=== PATIENT | female | born 1955 | race American Indian/Alaskan Native ===

== ENCOUNTER 2018-04-21 13:12 | Emergency (ER) | payer OTHER ==
[2018-04-21] MEDS ORDERED: ANTIVERT PO ONE (16:11)
[2018-04-21] MEDS ORDERED: ZOFRAN ODT PO ONE (16:11)
--- NOTE | 2018-04-21 16:14 | Emergency Department Report ---
Blank Doc - Documentation Documentation: Patient is a 62-year-old female who is presenting with multiple complaints. Patient states she has some right ear pain for the last several days w/ dizziness as well as a sensation that something is dripping from the right ear into her mouth. Patient also states that yesterday she was having some neck tightness with some vibrating of movements of her head. Patient states she also is worried that she may have obstruction or abdomen secondary to nausea. On focused physical exam patient does have a small amount of clear fluid behind the right TM and her dizziness and may be secondary to some mild vertigo. X-ray of the abdomen will be taken despite the fact the patient has normal bowel sounds and abdomen is soft and nontender. Patient is convinced she has some obstruction and this will be ruled out.
--- NOTE | 2018-04-21 17:51 | Emergency Department Report ---
<DIMA VERAS YANG - Last Filed: 04/21/18 18:58> ED ENT HPI - General Chief complaint: Earache Stated complaint: RIGHT EAR PAIN, FACE SHAKING Time Seen by Provider: 04/21/18 16:04 Source: patient Mode of arrival: Ambulatory Limitations: No Limitations - History of Present Illness Initial comments: This is a 62-year-old female who is presenting with right ear pain, dizziness, and facial tremors for 2 days. Patient states she is feeling sensation of dizziness with right ear pain for 2 days. Her daughter noticed Friday her face was twitching and told her to go to her primary care doctor. She called her PCP Dr. Diaz who advised he wouldn't refer her to a neurologist for follow-up. Patient states she did not want to wait appointment with neurologist and decided to come in for evaluation. Patient also states that yesterday she was having some neck tightness with some vibrating of movements of her head. Patient is also complaining of abdominal cramping that is intermittent with nausea. Patient denies weakness, vomiting, chest pain, shortness of breath, numbness or tingling, ataxia, and fever. MD complaint: ear pain (right ear) Onset/Timin -: days(s) Location: R ear Severity: moderate Severity scale (0 -10): 5 Quality: aching Consistency: constant Improves with: none Worsens with: swallowing, eating Associated Symptoms: other (vertigo) - Related Data Previous Rx's Medication Instructions Recorded Last Taken Type Bisacodyl [Dulcolax suppos] 10 mg WA QDAY PRN #10 supp.rect 10/29/15 Unknown Rx Ondansetron [Zofran ODT TAB] 8 mg PO Q8HR PRN #14 tab.rapdis 10/29/15 Unknown Rx Pantoprazole [Protonix] 40 mg PO QDAY #30 tablet 10/29/15 Unknown Rx Ondansetron [Zofran Odt] 4 mg PO Q6H #7 tab.rapdis 03/04/16 Unknown Rx traMADol [Ultram] 50 mg PO Q6HR PRN #14 tablet 03/04/16 Unknown Rx Meclizine [Antivert] 25 mg PO TID PRN #15 tablet 04/22/18 Unknown Rx Ondansetron [Zofran Odt] 4 mg PO Q8HR #12 tab.rapdis 04/22/18 Unknown Rx Allergies Allergy/AdvReac Type Severity Reaction Status Date / Time ibuprofen Allergy Rash Verified 04/21/18 13:37 ED Dental HPI - General Chief complaint: Earache Stated complaint: RIGHT EAR PAIN, FACE SHAKING Time Seen by Provider: 04/21/18 16:04 Source: patient Mode of arrival: Ambulatory Limitations: No Limitations - Related Data Previous Rx's Medication Instructions Recorded Last Taken Type Bisacodyl [Dulcolax suppos] 10 mg WA QDAY PRN #10 supp.rect 10/29/15 Unknown Rx Ondansetron [Zofran ODT TAB] 8 mg PO Q8HR PRN #14 tab.rapdis 10/29/15 Unknown Rx Pantoprazole [Protonix] 40 mg PO QDAY #30 tablet 10/29/15 Unknown Rx Ondansetron [Zofran Odt] 4 mg PO Q6H #7 tab.rapdis 03/04/16 Unknown Rx traMADol [Ultram] 50 mg PO Q6HR PRN #14 tablet 03/04/16 Unknown Rx Meclizine [Antivert] 25 mg PO TID PRN #15 tablet 04/22/18 Unknown Rx Ondansetron [Zofran Odt] 4 mg PO Q8HR #12 tab.rapdis 04/22/18 Unknown Rx Allergies Allergy/AdvReac Type Severity Reaction Status Date / Time ibuprofen Allergy Rash Verified 04/21/18 13:37 ED Review of Systems ROS: Stated complaint: RIGHT EAR PAIN, FACE SHAKING Other details as noted in HPI Constitutional: denies: chills, fever ENT: ear pain (right ear). denies: throat pain Respiratory: denies: cough, shortness of breath, wheezing Cardiovascular: denies: chest pain, palpitations, syncope Gastrointestinal: denies: abdominal pain, nausea, vomiting, diarrhea Neurological: vertigo. denies: headache, weakness, paresthesias Psychiatric: denies: anxiety, depression ED Past Medical Hx - Past Medical History Hx Hypertension: Yes Hx Congestive Heart Failure: No Hx Diabetes: Yes (diet control) Hx Asthma: No Hx COPD: No Hx HIV: No Additional medical history: heart trouble, patient unsure of what the diagnosis is, states it hasn't bothered her in a long time,ANEMIA - Surgical History Hx Cholecystectomy: Yes Additional Surgical History: HERNIA SURGERY done December - Social History Smoking Status: Never Smoker Substance Use Type: None - Medications Home Medications: Home Medications Medication Instructions Recorded Confirmed Last Taken Type Bisacodyl [Dulcolax suppos] 10 mg WA QDAY PRN #10 supp.rect 10/29/15 Unknown Rx Ondansetron [Zofran ODT TAB] 8 mg PO Q8HR PRN #14 tab.rapdis 10/29/15 Unknown Rx Pantoprazole [Protonix] 40 mg PO QDAY #30 tablet 10/29/15 Unknown Rx Ondansetron [Zofran Odt] 4 mg PO Q6H #7 tab.rapdis 03/04/16 Unknown Rx traMADol [Ultram] 50 mg PO Q6HR PRN #14 tablet 03/04/16 Unknown Rx Meclizine [Antivert] 25 mg PO TID PRN #15 tablet 04/22/18 Unknown Rx Ondansetron [Zofran Odt] 4 mg PO Q8HR #12 tab.rapdis 04/22/18 Unknown Rx ED Physical Exam - General Limitations: No Limitations General appearance: alert, in no apparent distress, obese - ENT ENT exam: Present: mucous membranes moist, normal external ear exam. Absent: TM 's normal bilaterally (right dull segovia TM, visual bubbles ) - Neck Neck exam: Present: normal inspection, full ROM. Absent: tenderness, meningismus, lymphadenopathy, thyromegaly - Respiratory Respiratory exam: Present: normal lung sounds bilaterally. Absent: respiratory distress - Cardiovascular Cardiovascular Exam: Present: regular rate, normal rhythm. Absent: systolic murmur, diastolic murmur, rubs, gallop - GI/Abdominal GI/Abdominal exam: Present: soft, normal bowel sounds. Absent: distended, tenderness, guarding, rebound, rigid, organomegaly, mass - Neurological Exam Neurological exam: Present: alert, oriented X3, CN II-XII intact, normal gait, reflexes normal - Psychiatric Psychiatric exam: Present: normal affect, normal mood - Skin Skin exam: Present: warm, dry, intact, normal color. Absent: rash ED Course Vital Signs 04/21/18 13:37 Temperature 98.3 F Pulse Rate 110 H Respiratory 20 Rate Blood Pressure 164/86 O2 Sat by Pulse 98 Oximetry ED Medical Decision Making - Radiology Data Radiology results: report reviewed, image reviewed FINAL REPORT EXAM: XR ABD SERIES W CXR 1V HISTORY: nausea, distended TECHNIQUE: Supine and upright views of the abdomen and chest x-ray were performed Comparison: CT 10/26/2015 FINDINGS: Abdominal images demonstrate paucity of bowel gas. Clips in the right upper quadrant. Clear well expanded lungs without focal infiltrate or consolidation. Normal heart size. Hiatal hernia. No free air. Previous CT demonstrates Sherice fundoplication with herniation of the stomach into the distal esophagus. IMPRESSION: Paucity of bowel gas. Cannot fully assess for obstruction or ileus. Previous Sherice fundoplication with part of stomach herniated in the distal esophagus on the previous CT. Current exam demonstrates clips and hiatal hernia. Consider repeat CT or possibly upper GI. No free air. Clear lungs. - Medical Decision Making This is a 62 y.o. female who is presenting with right ear pain, dizziness, and facial tremors for 2 days. Patient is stable and was examined by me and Parker Pereira. Vitals stable. XR of abdomen and chest obtained and dictated by radiologist. Paucity of bowel gas. Cannot fully assess for obstruction or ileus. Previous Sherice fundoplication with part of stomach herniated in the distal esophagus on the previous CT. Current exam demonstrates clips and hiatal hernia. Consider repeat CT or possibly upper GI. No free air. Clear lungs. Ordered CT of abdomen with oral contrast, pending. Chart signed and f/u with Aaron Cash Critical care attestation.: If time is entered above; I have spent that time in minutes in the direct care of this critically ill patient, excluding procedure time. ED Disposition Clinical Impression: Vertigo Abdominal pain Qualifiers: Abdominal location: unspecified location Qualified Code(s): R10.9 - Unspecified abdominal pain Disposition: DC- TO HOME OR SELFCARE Condition: Stable Instructions: Vertigo (ED), Abdominal Pain (ED) Additional Instructions: Please is take medication as prescribed. Follow up with her primary care provider. Prescriptions: Meclizine [Antivert] 25 mg PO TID PRN #15 tablet PRN Reason: Vertigo Ondansetron [Zofran Odt] 4 mg PO Q8HR #12 tab.rapdis Referrals: CARLOS TORREZ MD [Primary Care Provider] - 3-5 Days PENNY BOONE MD [Referring] - 3-5 Days <ROBERTO CARLOS CASH - Last Filed: 04/22/18 02:38> ED Medical Decision Making - Radiology Data FINAL REPORT PROCEDURE: CT ABDOMEN PELVIS WO CON TECHNIQUE: Computerized axial tomography of the abdomen and pelvis was performed without intravenous contrast. This study is performed without intravascular contrast material and its sensitivity for abdominal and pelvic pathology, including neoplasms, inflammation, abscess, free fluid, thrombosis, arterial dissection and infarction, is reduced compared with a contrast enhanced study. HISTORY: r/o ileus per radiologist COMPARISON: No prior studies are available for comparison. FINDINGS: Moderate degree hiatal hernia is noted. Liver, spleen, pancreas and adrenal glands are within normal limits. Bilateral kidneys demonstrate normal density without calculi or hydronephrosis. Aorta is of normal caliber. There is no free fluid or free air. Status post cholecystectomy. Small bowel loops are within normal limits. Multiple colonic diverticula are noted without evidence of diverticulitis. Appendix is normal. A few small fat containing uncomplicated ventral hernias are identified in the epigastric region. Vertebral height is normal. Irregular calcifications are noted in the uterus. There is a posterior uterine mass measuring about 3 centimeters on the left. IMPRESSION: No acute intra-abdominal or pelvic pathology Moderate degree hiatal hernia Irregular calcifications of uterus most likely represent fibroid calcifications. 3 centimeter mass arising from the posterior uterus most likely represents fibroid. Ultrasound evaluation may be recommended. Colonic diverticulosis without evidence of diverticulitis.. Transcribed By: [facility] – [place] Dictated By: ISRRAEL MILLAN Electronically Authenticated By: ISRRAEL MILLAN Signed Date/Time: 04/21/182153 DD/ 53 TD/TT: 04/21/182153 FINAL REPORT PROCEDURE: CT ABDOMEN PELVIS WO CON TECHNIQUE: Computerized axial tomography of the abdomen and pelvis was performed without intravenous contrast. This study is performed without intravascular contrast material and its sensitivity for abdominal and pelvic pathology, including neoplasms, inflammation, abscess, free fluid, thrombosis, arterial dissection and infarction, is reduced compared with a contrast enhanced study. HISTORY: r/o ileus per radiologist COMPARISON: No prior studies are available for comparison. FINDINGS: Moderate degree hiatal hernia is noted. Liver, spleen, pancreas and adrenal glands are within normal limits. Bilateral kidneys demonstrate normal density without calculi or hydronephrosis. Aorta is of normal caliber. There is no free fluid or free air. Status post cholecystectomy. Small bowel loops are within normal limits. Multiple colonic diverticula are noted without evidence of diverticulitis. Appendix is normal. A few small fat containing uncomplicated ventral hernias are identified in the epigastric region. Vertebral height is normal. Irregular calcifications are noted in the uterus. There is a posterior uterine mass measuring about 3 centimeters on the left. IMPRESSION: No acute intra-abdominal or pelvic pathology Moderate degree hiatal hernia Irregular calcifications of uterus most likely represent fibroid calcifications. 3 centimeter mass arising from the posterior uterus most likely represents fibroid. Ultrasound evaluation may be recommended. Colonic diverticulosis without evidence of diverticulitis.. Transcribed By: [facility] [place] Dictated By: ISRRAEL MILLAN Electronically Authenticated By: ISRRAEL MILLAN Signed Date/Time: 04/21/182153 DD/ 53 TD/TT: 04/21/182153 ED Disposition Is pt being admited?: No Does the pt Need Aspirin: No
--- NOTE | 2018-04-21 22:01 | Cat Scan Report ---
FINAL REPORT PROCEDURE: CT ABDOMEN PELVIS WO CON TECHNIQUE: Computerized axial tomography of the abdomen and pelvis was performed without intravenous contrast. This study is performed without intravascular contrast material and its sensitivity for abdominal and pelvic pathology, including neoplasms, inflammation, abscess, free fluid, thrombosis, arterial dissection and infarction, is reduced compared with a contrast enhanced study. HISTORY: r/o ileus per radiologist COMPARISON: No prior studies are available for comparison. FINDINGS: Moderate degree hiatal hernia is noted. Liver, spleen, pancreas and adrenal glands are within normal limits. Bilateral kidneys demonstrate normal density without calculi or hydronephrosis. Aorta is of normal caliber. There is no free fluid or free air. Status post cholecystectomy. Small bowel loops are within normal limits. Multiple colonic diverticula are noted without evidence of diverticulitis. Appendix is normal. A few small fat containing uncomplicated ventral hernias are identified in the epigastric region. Vertebral height is normal. Irregular calcifications are noted in the uterus. There is a posterior uterine mass measuring about 3 centimeters on the left. IMPRESSION: No acute intra-abdominal or pelvic pathology Moderate degree hiatal hernia Irregular calcifications of uterus most likely represent fibroid calcifications. 3 centimeter mass arising from the posterior uterus most likely represents fibroid. Ultrasound evaluation may be recommended. Colonic diverticulosis without evidence of diverticulitis..
[2018-04-22 01:23] LABS: Basophils # (Auto) 0.1 K/mm3 (0.0-0.1); Basophils % (Auto) 0.8 % (0.0-1.8); Eosinophils # (Auto) 0.1 K/mm3 (0.0-0.4); Eosinophils % (Auto) 0.8 % (0.0-4.3); Hematocrit 42.3 % (30.3-42.9); Hemoglobin 13.8 gm/dl (10.1-14.3); Lymphocytes # (Auto) 4.4 K/mm3 (1.2-5.4); Lymphocytes % (Auto) 51.6 % (13.4-35.0); Mean Corpuscular HGB Conc 33 % (30-34); Mean Corpuscular Hemoglobin 28 pg (28-32); Mean Corpuscular Volume 86 fl (79-97); Monocytes # (Auto) 0.5 K/mm3 (0.0-0.8); Monocytes % (Auto) 6.1 % (0.0-7.3); Platelet Count 227 K/mm3 (140-440); Red Blood Count 4.91 M/mm3 (3.65-5.03); Red Cell Distribution Width 14.7 % (13.2-15.2)
[2018-04-22 02:16] LABS: Bilirubin,Urine NEG (Negative); Blood,Urine MOD (Negative); Color,Urine Yellow (Yellow); Mucus,Urine 1+ /HPF; Protein,Urine <15 mg/dL mg/dL (Negative); Urobilinogen,Urine < 2.0 mg/dL (<2.0)
[2018-04-22 02:35] LABS: Alanine Aminotransferase 30 units/L (7-56); BUN/Creatinine Ratio 13; Blood Urea Nitrogen 9 mg/dL (7-17); Calcium 10.5 mg/dL (8.4-10.2); Hemolysis Index 35
[2018-04-22 03:29] VITALS: BP 140/88
== END 2018-04-22 03:27 | disposition home or self-care (01) ==
LOC: ED 13:12
DX: H92.01 Otalgia, right ear (principal); R42 Dizziness and giddiness; R25.1 Tremor, unspecified; R10.9 Unspecified abdominal pain; I10 Essential (primary) hypertension; E11.9 Type 2 diabetes mellitus without complications; Z90.49 Acquired absence of other specified parts of digestive tract; Z88.6 Allergy status to analgesic agent
CPT/HCPCS: 36415; 74022; 74176; 80053; 81001; 84443; 85025; 99284; Q0162

== ENCOUNTER 2021-02-11 15:32 | Emergency (ER) | payer MEDICARE, OTHER ==
[2021-02-11 16:35] LABS: Basophils % (Auto) 0.4 % (0.0-1.8); Eosinophils % (Auto) 0.6 % (0.0-4.3); Hematocrit 42.6 % (30.3-42.9); Hemoglobin 13.7 gm/dl (10.1-14.3); Lymphocytes # (Auto) 2.5 K/mm3 (1.2-5.4); Lymphocytes % (Auto) 40.9 % (13.4-35.0); Mean Corpuscular HGB Conc 32 % (30-34); Mean Corpuscular Volume 89 fl (79-97); Monocytes # (Auto) 0.5 K/mm3 (0.0-0.8); Monocytes % (Auto) 7.6 % (0.0-7.3); Platelet Count 200 K/mm3 (140-440); Red Blood Count 4.79 M/mm3 (3.65-5.03)
[2021-02-11 16:36] LABS: Bilirubin,Urine NEG (Negative); Blood,Urine SM (Negative); Color,Urine Yellow (Yellow); Protein,Urine <15 mg/dL mg/dL (Negative); Urobilinogen,Urine < 2.0 mg/dL (<2.0)
[2021-02-11 16:48] LABS: Alanine Aminotransferase 27 units/L (7-56); Albumin 4.5 g/dL (3.9-5); Blood Urea Nitrogen 11 mg/dL (7-17); Calcium 9.8 mg/dL (8.4-10.2); Hemolysis Index 25
[2021-02-11 16:49] LABS: BUN/Creatinine Ratio 16
--- NOTE | 2021-02-11 18:05 | Event Note ---
ED Screening Note Date of service: 02/11/21 Time: 18:02 ED Screening Note: 65-year-old female patient with history of diabetes, hypertension, and recurrent small bowel obstruction presents to emergency department with complaints of epigastric abdominal pain, nausea, and lower back pain worsening for approximately 1 week. No preceding fall, trauma, or injury Tylenol and ibuprofen have been ineffective in relieving her symptoms. States her symptoms are reminiscent of prior small bowel obstruction. Last bowel movement was today; patient states she was continued to have bowel movements when she was last diagnosed with a bowel obstruction. Tachycardic and hypertensive in triage. General: Awake, appropriately interactive, no acute distress. Neck: Supple. Full range of motion intact. Cardiovascular: Normal peripheral perfusion. Pulmonary: No respiratory distress. Patient is speaking normally without use of accessory muscles. Abdomen: Soft, nondistended. Diffuse abdominal tenderness. Bowel sounds present. Skin: No apparent rashes or lesions. Neurological: No facial asymmetry. Speech is clear. Follows commands. Patient is alert and oriented. Musculoskeletal: Moves all four extremities spontaneously with normal range of motion. Psych: Cooperative. Appropriate mood and affect. I have greeted and performed a focused rapid initial assessment of this patient. A comprehensive ED assessment and evaluation of the patient, analysis of all test results, and completion of the medical decision-making process will be conducted by additional ED providers. This initial assessment/diagnostic orders/clinical plan/treatment(s) is/are subject to change based on patients health status, clinical progression and re-assessment. Further treatment and workup at subsequent clinical provider's discretion. Patient/guardian urged not to elope from the ED as their condition may be serious if not clinically assessed and managed.
--- NOTE | 2021-02-11 18:26 | XRay Report ---
CHEST 2 VIEWS INDICATION / CLINICAL INFORMATION: nausea/epigastric pain; hx diabetes. COMPARISON: 04/21/2018 FINDINGS: SUPPORT DEVICES: None. HEART / MEDIASTINUM: No significant abnormality. LUNGS / PLEURA: No significant pulmonary or pleural abnormality. No pneumothorax. ADDITIONAL FINDINGS: No significant additional findings. IMPRESSION: 1. No acute findings. Signer Name: Victor Hugo Nunes MD Signed: 02/11/2021 6:22 PM Workstation Name: [id number]
[2021-02-11] MEDS ORDERED: SODIUM CHLORIDE 0.9% 1000 ML 1,000 ML IV ONE (20:20)
[2021-02-11] MEDS ORDERED: HYDROmorphone 1 MG/1 ML INJ IV ONE ×2 (20:25→23:00)
[2021-02-11] MEDS ORDERED: ONDANSETRON 4 MG/2 ML INJ IV ONE (20:25)
--- NOTE | 2021-02-11 20:29 | Emergency Department Report ---
ED Abdominal Pain HPI - General Chief Complaint: Nausea/Vomiting/Diarrhea Stated Complaint: WEAK IN LEG Time Seen by Provider: 02/11/21 20:17 Source: patient Mode of arrival: Ambulatory Limitations: No Limitations - History of Present Illness Initial Comments: Patient is a 65-year-old female who presents emergency room with complaints of abdominal pain, lower back pain, nausea, feeling faint. Patient also complains of generalized weakness. Patient safely her back pain started 1 week ago and is worsening. Patient states her abdominal pain, weakness, feeling faint and nausea started 3 days ago. Patient states all of her symptoms are worsening. Patient states that for back pain she been taking Tylenol and ibuprofen. Patient states she is allergic to ibuprofen but she had so much pain she took it anyway. Patient states she got a rash on her neck. Patient states abdominal pain is a 10 out of 10. Patient states her back pain is a 5 out of 10. Patient states her pain in her abdominal region is better with rest and worse with movement. Patient dates her back pain is better with rest and worse with movement. Patient states that her feeling of being faint and weakness is better with rest and worse with exertion and movement. Patient states that she never lost consciousness. Patient denies syncope. Patient denies trauma or head i njury. Patient denies recent travel. Patient denies recent international travel. Patient denies exposure to the novel coronavirus. Patient denies sick contacts. Patient denies fever and chills. Patient denies cough. Patient denies diarrhea. Patient denies coming in contact with anybody with symptoms of the novel coronavirus. MD Complaint: abdominal pain -: Sudden Location: diffuse Radiation: none Migration to: no migration Severity: severe Severity scale (0 -10): 10 Quality: stabbing Consistency: constant Improves With: rest Worsens With: movement Associated Symptoms: nausea. denies: vomiting, diarrhea, fever, chills, constipation, dysuria, hematemesis, hematochezia, melena, hematuria, syncope - Related Data LMP (females 10-50): unknown Previous Rx's Medication Instructions Recorded Last Taken Type Ondansetron [Zofran ODT TAB] 8 mg PO Q8HR PRN #14 tab.rapdis 10/29/15 Unknown Rx Pantoprazole [Protonix] 40 mg PO QDAY #30 tablet 10/29/15 Unknown Rx bisacodyL [Dulcolax suppos] 10 mg [place] QDAY PRN #10 supp.rect 10/29/15 Unknown Rx Ondansetron [Zofran Odt] 4 mg PO Q6H #7 tab.rapdis 03/04/16 Unknown Rx Meclizine [Antivert] 25 mg PO TID PRN #15 tablet 04/22/18 Unknown Rx Ondansetron [Zofran ODT TAB] 4 mg PO Q6HR PRN #12 tab.rapdis 02/12/21 Unknown Rx traMADoL [Ultram 50 MG tab] 50 mg PO Q6HR PRN #14 tablet 02/12/21 Unknown Rx Allergies Allergy/AdvReac Type Severity Reaction Status Date / Time ibuprofen Allergy Rash Verified 04/21/18 13:37 ED Review of Systems ROS: Stated complaint: WEAK IN LEG Other details as noted in HPI Constitutional: denies: chills, fever Eyes: denies: eye pain, eye discharge, vision change ENT: denies: ear pain, throat pain Respiratory: denies: cough, shortness of breath, wheezing Cardiovascular: denies: chest pain, palpitations Endocrine: no symptoms reported Gastrointestinal: as per HPI, abdominal pain, nausea. denies: vomiting, diarrhea Genitourinary: denies: urgency, dysuria, discharge Musculoskeletal: as per HPI, back pain. denies: joint swelling, arthralgia Skin: denies: rash, lesions Neurological: denies: headache, weakness, paresthesias Psychiatric: denies: anxiety, depression Hematological/Lymphatic: denies: easy bleeding, easy bruising ED Past Medical Hx - Past Medical History Previous Medical History?: Yes Hx Hypertension: Yes Hx Congestive Heart Failure: No Hx Diabetes: Yes (diet control) Hx Asthma: No Hx COPD: No Hx HIV: No Additional medical history: heart trouble, patient unsure of what the diagnosis is, states it hasn't bothered her in a long time,ANEMIA - Surgical History Past Surgical History?: Yes Hx Cholecystectomy: Yes Additional Surgical History: HERNIA SURGERY done December - Family History Family history: no significant - Social History Smoking Status: Never Smoker Substance Use Type: None - Medications Home Medications: Home Medications Medication Instructions Recorded Confirmed Last Taken Type Ondansetron [Zofran ODT TAB] 8 mg PO Q8HR PRN #14 tab.rapdis 10/29/15 Unknown Rx Pantoprazole [Protonix] 40 mg PO QDAY #30 tablet 10/29/15 Unknown Rx bisacodyL [Dulcolax suppos] 10 mg [place] QDAY PRN #10 supp.rect 10/29/15 Unknown Rx Ondansetron [Zofran Odt] 4 mg PO Q6H #7 tab.rapdis 03/04/16 Unknown Rx Meclizine [Antivert] 25 mg PO TID PRN #15 tablet 04/22/18 Unknown Rx Ondansetron [Zofran ODT TAB] 4 mg PO Q6HR PRN #12 tab.rapdis 02/12/21 Unknown Rx traMADoL [Ultram 50 MG tab] 50 mg PO Q6HR PRN #14 tablet 02/12/21 Unknown Rx ED Physical Exam - General Limitations: No Limitations General appearance: alert, in no apparent distress - Head Head exam: Present: atraumatic, normocephalic - Eye Eye exam: Present: normal appearance, PERRL Pupils: Present: normal accommodation - ENT ENT exam: Present: mucous membranes moist - Neck Neck exam: Present: normal inspection - Respiratory Respiratory exam: Present: normal lung sounds bilaterally. Absent: respiratory distress, wheezes - Cardiovascular Cardiovascular Exam: Present: regular rate, normal rhythm. Absent: systolic murmur, diastolic murmur, rubs, gallop - GI/Abdominal GI/Abdominal exam: Present: soft, tenderness (Generalized tenderness to palpation.), normal bowel sounds - Rectal Rectal exam: Present: deferred - Extremities Exam Extremities exam: Present: normal inspection, full ROM - Back Exam Back exam: Present: normal inspection - Neurological Exam Neurological exam: Present: alert, oriented X3, CN II-XII intact, normal gait - Psychiatric Psychiatric exam: Present: normal affect, normal mood - Skin Skin exam: Present: warm, dry, intact, normal color. Absent: rash, diaphoretic, erythema, urticaria ED Course Vital Signs 02/11/21 02/11/21 02/11/21 16:01 19:50 20:00 Temperature 99.5 F Pulse Rate 100 H 112 H 115 H Respiratory 20 16 11 L Rate Blood Pressure 172/96 O2 Sat by Pulse 100 100 100 Oximetry 02/11/21 02/11/21 20:16 20:30 Temperature Pulse Rate 115 H 119 H Respiratory 17 16 Rate Blood Pressure 173/97 O2 Sat by Pulse 98 Oximetry - Reevaluation(s) Reevaluation #1: Patient states her pain is better. CT scan is pending. 02/12/21 00:09 Reevaluation #2: I discussed all results and clinical findings with patient. I discussed plan of care with patient. Patient agrees with plan of care. Patient is stable for discharge. Patient will be discharged home. Patient given discharge instructions. Patient voiced understanding of discharge instructions. 02/12/21 03:44 ED Medical Decision Making - Lab Data Result diagrams: 02/11/21 16:15 02/11/21 16:15 - Radiology Data Radiology results: report reviewed, image reviewed interpreted by me: Chest x-ray: No pneumonia, no pneumothorax, no foreign body, no osseous findings, no acute findings CHEST 2 VIEWS INDICATION / CLINICAL INFORMATION: nausea/epigastric pain; hx diabetes. COMPARISON: 04/21/2018 FINDINGS: SUPPORT DEVICES: None. HEART / MEDIASTINUM: No significant abnormality. LUNGS / PLEURA: No significant pulmonary or pleural abnormality. No pneumothorax. ADDITIONAL FINDINGS: No significant additional findings. IMPRESSION: 1. No acute findings. CT abdomen pelvis w con INDICATION / CLINICAL INFORMATION: abd pain. TECHNIQUE: Axial CT imaging of abdomen and pelvis was obtained with IV contrast. Coronal and sagittal reformatted imaging obtained and reviewed. All CT scans at this location are performed using CT dose reduction for ALARA by means of automated exposure control. COMPARISON: Prior CT abdomen/pelvis 04/21/2018 FINDINGS: CT abdomen with contrast demonstrates normal appearance of the liver, spleen, pancreas, kidneys, and adrenal glands. Prior cholecystectomy. No biliary dilatation. There is moderate sized hiatal hernia unchanged in appearance with prior CT from 2018. CT pelvis with contrast demonstrates an enlarged lobulated uterus unchanged in appearance and size. There are several small calcifications scattered throughout the uterus. The appe arance is consistent with multiple uterine fibroids. The uterus measures approximately 8.4 x 8.2 cm. There is moderate diverticulosis throughout the entire colon, most notable in in the sigmoid and d escending colon. No diverticulitis noted at this time. A normal appendix is present in the right mid abdomen. The remainder of the GI tract is unremarkable. Visualized lung bases do not demonstrate any acute pulmonary or pleural disease. No acute significant osseous abnormality noted. IMPRESSION: 1. No acute abnormality identified within the abdomen or pelvis. 2. Prominent diverticulosis throughout the entire colon. No evidence for acute diverticulitis on today's exam. 3. Moderate size hiatal hernia. 4. Enlarged myomatous uterus unchanged in size and appearance compared with 2018 CT scan. - Medical Decision Making Patient is a 65-year-old female that presents emergency room with complaints of abdominal pain and back pain. Patient had generalized tenderness to palpation of the abdominal region on exam. Patient had labs done which were essentially unremarkable. She had a CT scan of the abdomen which was negative for acute findings. Patient had a chest x-ray which was negative for acute findings. Personally reviewed the chest x-ray. Patient stable for discharge. Patient be discharged home with pain medications. - Differential Diagnosis Back pain, abdominal pain, SBO, UTI, Critical care attestation.: If time is entered above; I have spent that time in minutes in the direct care of this critically ill patient, excluding procedure time. ED Disposition Clinical Impression: Gastroenteritis Abdominal pain Qualifiers: Abdominal location: generalized Qualified Code(s): R10.84 - Generalized abdominal pain Back pain Qualifiers: Back pain location: low back pain Chronicity: acute Back pain laterality: midline Sciatica presence: without sciatica Qualified Code(s): M54.5 - Low back pain Disposition: DC-01 TO HOME OR SELFCARE Is pt being admited?: No Does the pt Need Aspirin: No Condition: Stable Instructions: Abdominal Pain, Adult, [id number], Acute Back Pain, Adult, Abdominal Pain, Adult, Viral Gastroenteritis, Adult, [id number] Additional Instructions: Patient to follow-up with primary care in 2 to 3 days. Patient to follow-up with gastroenterology and orthopedist in 2 to 3 days. Patient to rest. Patient to increase water. Patient to avoid strenuous exercise or heavy lifting until cleared by orthopedist. Patient to eat a brat diet. Patient to avoid ibuprofen. Patient to take Tylenol as needed for pain. Patient to take meds as directed. Patient to return to the ER if condition worsens, changes or new symptoms arise. Prescriptions: traMADoL [Ultram 50 MG tab] 50 mg PO Q6HR PRN #14 tablet PRN Reason: Pain Ondansetron [Zofran ODT TAB] 4 mg PO Q6HR PRN #12 tab.rapdis PRN Reason: Nausea And Vomiting Referrals: SALOME WELLER MD [Primary Care Provider] - 2-3 Days JESSICA TAPIA MD [Staff Physician] - 2-3 Days NAT RECINOS MD [Staff Physician] - 2-3 Days Time of Disposition: 03:43
--- NOTE | 2021-02-12 03:30 | Cat Scan Report ---
CT abdomen pelvis w con INDICATION / CLINICAL INFORMATION: abd pain. TECHNIQUE: Axial CT imaging of abdomen and pelvis was obtained with IV contrast. Coronal and sagittal reformatte d imaging obtained and reviewed. All CT scans at this location are performed using CT dose reduction for ALARA by means of automated exposure control. COMPARISON: Prior CT abdomen/pelvis 04/21/2018 FINDINGS: CT abdomen with contrast demonstrates normal appearance of the liver, spleen, pancreas, kidneys, and adrenal glands. Prior cholecystectomy. No biliary dilatation. There is moderate sized hiatal hernia u nchanged in appearance with prior CT from 2018. CT pelvis with contrast demonstrates an enlarged lobulated uterus unchanged in appearance and size. T here are several small calcifications scattered throughout the uterus. The appearance is consistent w ith multiple uterine fibroids. The uterus measures approximately 8.4 x 8.2 cm. There is moderate dive rticulosis throughout the entire colon, most notable in in the sigmoid and descending colon. No diver ticulitis noted at this time. A normal appendix is present in the right mid abdomen. The remainder of the GI tract is unremarkable. Visualized lung bases do not demonstrate any acute pulmonary or pleural disease. No acute significant osseous abnormality noted. IMPRESSION: 1. No acute abnormality identified within the abdomen or pelvis. 2. Prominent diverticulosis throughout the entire colon. No evidence for acute diverticulitis on toda y's exam. 3. Moderate size hiatal hernia. 4. Enlarged myomatous uterus unchanged in size and appearance compared with 2018 CT scan. Signer Name: Patrizia Ureña MD Signed: 02/12/2021 3:26 AM Workstation Name: [id number]
[2021-02-12 05:52] VITALS: BP 154/98
== END 2021-02-12 05:50 | disposition home or self-care (01) ==
LOC: ED 15:32
DX: K52.9 Noninfective gastroenteritis and colitis, unspecified (principal); R10.84 Generalized abdominal pain; M54.5 Low back pain; I10 Essential (primary) hypertension; E11.9 Type 2 diabetes mellitus without complications; Z90.49 Acquired absence of other specified parts of digestive tract; Z98.890 Other specified postprocedural states; Z79.899 Other long term (current) drug therapy; Z88.8 Allergy status to other drugs, medicaments and biological substances
CPT/HCPCS: 36415; 71046; 74177; 80053; 81001; 83690; 84484; 85025; 96361; 96374; 96375; 99284; J1170; J2405; J7030; Q9967